=== PATIENT | female | born 1990 | race Caucasian/White ===

== ENCOUNTER 2017-08-17 02:38 | Inpatient (IN) | payer BC ==
[2017-08-17] VITALS (23 sets, daily range): BP systolic 102–135; BP diastolic 57–85; PULSE 50–95; TEMP 97.7–97.9
[~2017-08-17] VITALS: Ht 157.5 cm; Wt 63.6 kg
[~2017-08-17 02:38] MED LIST: MOTRIN 800800 MG/TAB PO; PERCOCET 325 MG1 TA2 PO; PRENATAL1 TA7 PO
[2017-08-17 03:04] LABS: BASO % 0.2 % (0.0-2.0); EOS % 0.2 % (0-4.0); GRAN # 9.3 (1.4-6.5); HEMOGLOBIN 11.1 g/dl (12.5-16.0); LYMPH % 15.9 % (20.0-51.0); MEAN CELL VOLUME 87 fl (80.0-100.0); MEAN CORPUSCULAR HEMOGLOBIN 29 pg (27.0-31.0); MEAN CORPUSCULAR HGB CONC 34 g/dl (33.0-37.0); MEAN PLATELET VOLUME 9.3 fl (7.4-10.4); MONO # 1.1 (0.1-0.6); MONO % 8.4 % (1.7-9.3); PLATELET COUNT 230 K/mm3 (130-400); RED BLOOD COUNT 3.78 M/mm3 (4.10-5.30); REDCELL DISTRIBUTION WIDTH-CV 14.3 % (11.5-14.5)
[2017-08-17 03:06] LABS: HEMATOCRIT 32.8 % (37.0-47.0)
[2017-08-18 08:20] VITALS: BP 103/67; PULSE 62; TEMP 97.4
[2017-08-18] MEDS ORDERED: IBU600 MG PO (10:10)
== END 2017-08-18 12:35 | disposition home or self-care (01) | DRG 775 ==
LOC: LDRO 02:38 → OB 02:45 → LDR 02:45 → OB 08:41
PROVIDERS: Obstetrics & Gynecology
PROC: 10E0XZZ Delivery of Products of Conception, External Approach (ICD-10-PCS; principal; 2017-08-17)
DX: O80 Encounter for full-term uncomplicated delivery (principal); Z37.0 Single live birth; Z3A.39 39 weeks gestation of pregnancy
CPT/HCPCS: J2795; J7120

== ENCOUNTER → 2023-09-30 | Outpatient (CLI) | payer OTHER ==
[~2023-09-30] MED LIST changes: +IBU600 MG PO
== END ==
LOC: MC.RAD 07:45
DX: N63.13 Unspecified lump in the right breast, lower outer quadrant (principal); N63.15 Unspecified lump in the right breast, overlapping quadrants

== ENCOUNTER → 2023-10-01 | Outpatient (CLI) | payer OTHER | LOC: MC.RAD 10:44 | DX: N63.14 Unspecified lump in the right breast, lower inner quadrant (principal) | CPT/HCPCS: 30634; 30636; A4648 ==